=== PATIENT | female | born 1955 | race Caucasian/White ===

== ENCOUNTER 2018-08-10 20:31 | Emergency (ER) | payer BC ==
[2018-08-10] MEDS: KETOROLAC 30 MG INJ IM (21:04)
[2018-08-10] MEDS: LORAZEPAM 0.5 MG TAB PO (22:04)
== END 2018-08-11 00:23 | disposition home or self-care (01) ==
LOC: E/R 08-11 00:23
DX: S76.011A Strain of muscle, fascia and tendon of right hip, initial encounter (principal); X58.XXXA Exposure to other specified factors, initial encounter; Y92.9 Unspecified place or not applicable
CPT/HCPCS: 72170; 73510; 96372; 99284-25

== ENCOUNTER 2018-09-18 05:28 | Inpatient (IN) | payer BC ==
[2018-09-18] MEDS: SOD CHLORIDE 0.9% 100 ML, TRANEXAMIC ACID 3,000 MG IRR (06:00)
[2018-09-18] MEDS: GABAPENTIN 300 MG CAP PO ×2 (06:15→20:35)
[2018-09-18] MEDS: DEXAMETHASONE 1 MG TAB PO (06:15)
[2018-09-18] MEDS: LACTATED RINGER'S 1,000 ML IV ×3 (06:16→20:35)
[2018-09-18] MEDS ORDERED: ROCURONIUM 50 MG INJ (06:55)
[2018-09-18] MEDS ORDERED: PROPOFOL 20 ML (06:55)
[2018-09-18] MEDS ORDERED: CEFAZOLIN 1 GM INJ (06:55)
[2018-09-18] MEDS ORDERED: FENTAnyl 50 MCG/ML VIAL (06:55)
[2018-09-18] MEDS ORDERED: MILRINONE LACTATE 1 MG/ML VIAL (06:56)
[2018-09-18] MEDS ORDERED: ROPIVACAINE 0.5 % 30 ML VIAL (06:56)
[2018-09-18] MEDS ORDERED: MIDAZOLAM 1 MG/ML 2 ML INJ (06:57)
[2018-09-18] MEDS: CEFAZOLIN 2 GM/50 ML (PMX) 50 ML IVPB (07:05)
[2018-09-18] MEDS ORDERED: THROMBIN 20,000 UNIT VIAL (07:26)
[2018-09-18] MEDS ORDERED: CA CHLORIDE 10% 10 ML SYRINGE (07:26)
[2018-09-18] MEDS ORDERED: METOCLOPRAMIDE 10 MG INJ (07:27)
[2018-09-18] MEDS ORDERED: DEXAMETHASONE 4 MG/ML 5 ML INJ (07:27)
[2018-09-18] MEDS ORDERED: ONDANSETRON 4 MG INJ (07:27)
[2018-09-18] MEDS ORDERED: KETOROLAC 30 MG INJ (07:27)
[2018-09-18] MEDS: BUPIVACAINE 0.5% (SDV) 30 ML, morphine SULFATE (PF) 8 MG, EPINEPHrine 0.3 MG, KETOROLAC... IRR (07:39)
[2018-09-18] MEDS: TRANEXAMIC ACID 1GM/100ML(PMX) 100 ML (07:40)
[2018-09-18] MEDS: TRANEXAMIC ACID 1GM/100ML(PMX) 100 ML IVPB ×2 (07:40→09:07)
[2018-09-18] MEDS ORDERED: PHENYLephrine (100 MCG/ML) 10ML SYG (07:42)
[2018-09-18] MEDS ORDERED: HETASTARCH 6% NACL 500 ML (07:55)
[2018-09-18] MEDS ORDERED: EPHEDrine 25 MG/5 ML SYG (08:03)
[2018-09-18] MEDS ORDERED: LABETALOL HCL 20MG INJ IV (08:30)
[2018-09-18] MEDS ORDERED: morphine 2 MG INJ IV ×2 (08:30)
[2018-09-18] MEDS ORDERED: HYDROmorphONE 1 MG/5 ML IV SYRINGE IV ×2 (08:30)
[2018-09-18] MEDS ORDERED: ONDANSETRON 4 MG INJ IV ×2 (08:30→09:30)
[2018-09-18] MEDS ORDERED: MEPERIDINE 25 MG INJ IV (08:30)
[2018-09-18] MEDS ORDERED: DIPHENHYDRAMINE 50 MG INJ IV ×3 (08:30→09:30)
[2018-09-18] MEDS ORDERED: ACETAMINOPHEN 500 MG TAB PO (08:30)
[2018-09-18] MEDS ORDERED: NALBUPHINE HCL (10 MG/1 ML) INJ IV (08:30)
[2018-09-18] MEDS ORDERED: KETOROLAC 30 MG INJ IV (08:30)
[2018-09-18] MEDS ORDERED: HYDROmorphONE 0.5 MG/0.5 ML SYG IV ×2 (08:30)
[2018-09-18] MEDS ORDERED: NALOXONE (0.4 MG/ML) INJ IV (08:30)
[2018-09-18] MEDS ORDERED: EPHEDrine 25 MG/5 ML SYG IV (08:30)
[2018-09-18] MEDS ORDERED: HYDROCODONE/APAP (5/325) TAB PO (08:30)
[2018-09-18] MEDS ORDERED: OXYCODONE/ACETAMINOPHEN (5/325) TAB PO (08:30)
[2018-09-18] MEDS ORDERED: FENTAnyl 50 MCG/ML VIAL IV ×2 (08:30)
[2018-09-18] MEDS ORDERED: ALBUMIN HUMAN 5% 250 ML IV (08:30)
[2018-09-18] MEDS ORDERED: METOCLOPRAMIDE 10 MG INJ IV (08:30)
[2018-09-18] MEDS ORDERED: TRANEXAMIC ACID 1GM/100ML(PMX) 200 ML (09:01)
[2018-09-18] MEDS ORDERED: SUGAMMADEX SODIUM 200 MG/2 ML VIAL IV (09:09)
[2018-09-18] MEDS ORDERED: ZOLPIDEM 5 MG TAB PO (09:30)
[2018-09-18] MEDS ORDERED: HYDROmorphONE 1 MG/ML SYG IV (09:30)
[2018-09-18] MEDS ORDERED: oxyCODONE 5 MG TAB PO ×2 (09:30)
[2018-09-18] MEDS ORDERED: NACL 0.9% 3 ML SYG IV (09:30)
[2018-09-18] MEDS ORDERED: MAGNESIUM HYDROXIDE 30ML CUP PO (09:30)
[2018-09-18 09:55] LABS: ADD MAN DIFF? NO
[2018-09-18] MEDS: CEFAZOLIN 1 GM/50 ML (PMX) 50 ML IVPB ×2 (10:03→16:36)
[2018-09-18] MEDS: ACETAMINOPHEN 1000MG/100ML IV 100 ML IVPB ×2 (10:03→17:32)
[2018-09-18 10:04] LABS: WHITE BLOOD COUNT 6.7 10^3/ul (4.8-10.8)
[2018-09-18 10:04] LABS: BASOPHILS % 0.4 % (0.0-2.0); EOSINOPHILS # 0.1 10^3/ul (0.0-0.5); HEMOGLOBIN 10.7 g/dl (12.0-16.0); LYMPHOCYTES # 1.1 10^3/ul (0.8-2.9); LYMPHOCYTES % 16.3 % (15.0-51.0); MEAN CORPUSCULAR HEMOGLOBIN 30.4 pg (29.0-33.0); MEAN CORPUSCULAR HGB CONC 32.4 g/dl (32.0-37.0); MEAN CORPUSCULAR VOLUME 93.8 fl (82.0-101.0); MEAN PLATELET VOLUME 9.2 fl (7.4-10.4); MONOCYTE # 0.2 10^3/ul (0.3-0.9); MONOCYTES % 2.7 % (0.0-11.0); NEUTROPHIL # 5.2 10^3/ul (1.6-7.5); NEUTROPHILS % 78.4 % (39.0-77.0); PLATELET COUNT 255 10^3/UL (140-415); RED BLOOD COUNT 3.52 10^6/ul (4.20-5.40); RED CELL DISTRIBUTION WIDTH 13.3 % (11.5-14.5)
[2018-09-18] MEDS: ONDANSETRON 4 MG INJ IV (10:41)
[2018-09-18] MEDS: DEXAMETHASONE 2 MG TAB PO ×2 (12:00→17:32)
[2018-09-18] MEDS: LEVOTHYROXINE 137 MCG TAB PO (12:20)
[2018-09-18] MEDS: SENNA/DOCUSATE NA (8.6MG/50MG) TAB PO (20:35)
[2018-09-19] MEDS: ACETAMINOPHEN 1000MG/100ML IV 100 ML IVPB (00:22)
[2018-09-19] MEDS: CEFAZOLIN 1 GM/50 ML (PMX) 50 ML IVPB (00:22)
[2018-09-19] MEDS: DEXAMETHASONE 2 MG TAB PO ×2 (00:22→06:12)
[2018-09-19 05:13] LABS: ADD MAN DIFF? NO
[2018-09-19 05:19] LABS: WHITE BLOOD COUNT 13.9 10^3/ul (4.8-10.8)
[2018-09-19 05:19] LABS: BASOPHILS % 0.1 % (0.0-2.0); HEMATOCRIT 30.8 % (37.0-47.0); HEMOGLOBIN 10.1 g/dl (12.0-16.0); LYMPHOCYTES % 7.5 % (15.0-51.0); MEAN CORPUSCULAR HGB CONC 32.8 g/dl (32.0-37.0); MEAN CORPUSCULAR VOLUME 94.5 fl (82.0-101.0); MEAN PLATELET VOLUME 9.5 fl (7.4-10.4); MONOCYTE # 1.2 10^3/ul (0.3-0.9); NEUTROPHIL # 11.5 10^3/ul (1.6-7.5); NEUTROPHILS % 82.9 % (39.0-77.0); PLATELET COUNT 267 10^3/UL (140-415); RED BLOOD COUNT 3.26 10^6/ul (4.20-5.40); RED CELL DISTRIBUTION WIDTH 13.4 % (11.5-14.5)
[2018-09-19] MEDS: LACTATED RINGER'S 1,000 ML IV (06:12)
[2018-09-19] MEDS: LEVOTHYROXINE 137 MCG TAB PO (06:12)
[2018-09-19] MEDS ORDERED: LEVOTHYROXINE 137 MCG TAB PO (07:00)
[2018-09-19] MEDS: ASPIRIN (EC) 325 MG TAB PO (09:23)
[2018-09-19] MEDS: SENNA/DOCUSATE NA (8.6MG/50MG) TAB PO (09:23)
[2018-09-19] MEDS: oxyCODONE 5 MG TAB PO ×2 (09:24→12:10)
[2018-09-20] MEDS ORDERED: MAGNESIUM HYDROXIDE 30ML CUP PO (21:00)
== END 2018-09-19 13:13 | disposition home or self-care (01) | DRG 470 ==
LOC: REC 05:28 → MS1 10:14
PROVIDERS: Orthopaedic Surgery
PROC: 0SRB04A Replacement of Left Hip Joint with Ceramic on Polyethylene Synthetic Substitute, Uncemented, Open Approach (ICD-10-PCS; principal; 2018-09-18 07:00)
DX: M16.12 Unilateral primary osteoarthritis, left hip (principal); E03.9 Hypothyroidism, unspecified
CPT/HCPCS: 72170; 73530; 85025; 86999; 87086; 88304; 88311; 97116; 97161; 97530